=== PATIENT | female | born 2000 | race African-American/Black ===

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

== ENCOUNTER 2021-09-26 17:43 | Emergency (ER) | payer OTHER ==
[~2021-09-26] VITALS: Ht 157.5 cm; Wt 48.1 kg
[~2021-09-26 17:43] MED LIST: AMOX1TAB5 PO; KETO10TA2 PO
== END 2021-09-26 22:48 | disposition home or self-care (01) ==
LOC: ER 17:43
DX: S00.93XA Contusion of unspecified part of head, initial encounter (principal); Y33.XXXA Other specified events, undetermined intent, initial encounter; Y93.89 Activity, other specified; Y92.89 Other specified places as the place of occurrence of the external cause; Y99.9 Unspecified external cause status